=== PATIENT | male | born 1950 | race Two or more races ===

== ENCOUNTER → 2021-07-21 | Emergency (ER) | payer OTHER ==
[~2021-07-21] VITALS: Ht 177.8 cm; Wt 83.0 kg
[~2021-07-21] MED LIST: DUPIXENT P200 MG/1.1 SQ; LIPITOR20 MG PO; TOPROL XL50 M1 PO
== END | disposition left against medical advice (07) ==
LOC: ER 10:12
DX: S90.02XA Contusion of left ankle, initial encounter (principal); S90.32XA Contusion of left foot, initial encounter; W19.XXXA Unspecified fall, initial encounter; Y93.89 Activity, other specified; Y92.89 Other specified places as the place of occurrence of the external cause; Y99.8 Other external cause status